=== PATIENT | female | born 1995 | race Two or more races ===

== ENCOUNTER → 2018-01-18 | Outpatient (REF) | payer OTHER ==
[2018-01-18 22:07] LABS: CHLAMYDIA DNA AMPLIFICATION NEGATIVE (NEGATIVE); GC DNA AMPLIFICATION NEGATIVE (NEGATIVE)
== END ==
LOC: M SFHCLERA 14:03
DX: R30.0 Dysuria (principal)

== ENCOUNTER → 2018-06-16 | Outpatient (REF) | payer OTHER | LOC: M SFHCLERA 16:33 | PROVIDERS: ATTEND Nurse Practitioner Family | DX: R53.81 Other malaise (principal) ==

== ENCOUNTER 2018-09-04 19:25 | Emergency (ER) | payer OTHER ==
[~2018-09-04] VITALS: Ht 167.6 cm; Wt 52.3 kg
[2018-09-04] MEDS ORDERED: IBUPROFEN 400 MG TAB PO ONE (20:45)
[2018-09-04] MEDS ORDERED: LIDOCAINE 1% MDV 20ML VIAL SC ONE (20:45)
[2018-09-04] MEDS ORDERED: KEFL500C17 PO (21:46)
[2018-09-04] MEDS ORDERED: CEPHALEXIN 500 MG CAP PO ONE (22:00)
[2018-09-04] MEDS ORDERED: NEOSPORIN OINT 0.9 GM PKT (FLOOR STOCK) TOP ONE (22:00)
[2018-09-04 22:08] VITALS: BP 105/69
--- NOTE | 2018-09-05 01:17 | REP ---
Clinical: Trauma. Puncture wound. Technique: AP, lateral, bilateral oblique views right hand . Findings: The osseous structures and joint spaces are intact and normal. There is no evidence for acute fracture or dislocation. Small amount of subcutaneous emphysema noted in the soft tissue web space between the first and second metacarpal bones. No foreign body. Impression: Small focus of subcutaneous emphysema in the soft tissue web space between the first and second metacarpal bones. No acute fracture or dislocation. Electronically Signed by Dimitrios Wilburn MD 09/05/2018 01:08 A
== END 2018-09-04 22:16 | disposition home or self-care (01) ==
LOC: M ED 19:25
DX: S61.411A Laceration without foreign body of right hand, initial encounter (principal); W26.0XXA Contact with knife, initial encounter; Y92.090 Kitchen in other non-institutional residence as the place of occurrence of the external cause

== ENCOUNTER 2018-09-11 15:22 | Emergency (ER) | payer OTHER ==
[~2018-09-11] VITALS: Ht 167.6 cm; Wt 51.9 kg
[2018-09-11 15:22] VITALS: BP 108/55
[~2018-09-11 15:22] MED LIST: KEFL500C17 PO
== END 2018-09-11 16:00 | disposition home or self-care (01) ==
LOC: M ED 15:22
DX: Z48.02 Encounter for removal of sutures (principal)